=== PATIENT | male | born 1995 | race Caucasian/White ===

== ENCOUNTER 2023-02-04 11:44 | Emergency (ER) | payer MEDICAID ==
[~2023-02-04] VITALS: Ht 175.3 cm; Wt 91.0 kg
[2023-02-04 11:47] VITALS: O2SAT 99
[2023-02-04] MEDS ORDERED: FLUORESCEIN SODIUM 1MG/STRIP LEFTEYE ONE (12:15)
[2023-02-04] MEDS ORDERED: TETRACAINE 0.5% OPHTH DROPS 4ML LEFTEYE ONE (12:15)
[2023-02-04 12:42] LABS: BASOPHILS % 0.3 % (0.0-2.0); EOSINOPHILS % 0.4 % (0.0-5.0); HEMATOCRIT. 54.2 % (42.0-52.0); HEMOGLOBIN. 18.7 g/dL (14.0-18.0); LYMPHOCYTES % 13.1 % (20.0-50.0); MEAN CORPUSCULAR HEMOGLOBIN 29.2 pg (28.0-32.0); MEAN CORPUSCULAR VOLUME 84.7 fL (80.0-94.0); MEAN PLATELET VOLUME 9.1 fl (7.4-10.4); NEUTROPHILS % 75.2 % (40.0-76.0); PLATELET 222 x1000/uL (130-400); RED CELL DISTRIBUTION WIDTH 13.5 % (11.6-14.6)
[2023-02-04 12:50] LABS: CHLORIDE 106 mEq/L (98-107)
[2023-02-04] MEDS ORDERED: IOHEXOL-300 100 ML BOTTLE ONE (13:51)
[2023-02-04] MEDS ORDERED: AMOX1TAB16 MT (14:53)
[2023-02-04] MEDS ORDERED: SULF1TAB48 MT (14:53)
[2023-02-04] MEDS ORDERED: IBUP-2029 MT (14:54)
[2023-02-04] MEDS ORDERED: KETOROLAC 30MG/ML VIAL IV ONE (15:00)
[2023-02-04 15:52] VITALS: BP 134/99; PULSE 66; RESP 18; TEMP 98.3
== END 2023-02-04 15:53 | disposition home or self-care (01) ==
LOC: ER 11:44
DX: L03.213 Periorbital cellulitis (principal); H57.12 Ocular pain, left eye
CPT/HCPCS: 99285; 96374; 70481; 80048; 85025; 36415; Q9967; J1885

== ENCOUNTER 2023-02-16 19:28 | Emergency (ER) | payer MEDICAID ==
[~2023-02-16] VITALS: Ht 175.3 cm; Wt 91.0 kg
[~2023-02-16 19:28] MED LIST: AMOX1TAB16 MT; IBUP-2029 MT; SULF1TAB48 MT
[2023-02-16 20:55] VITALS: TEMP 98.2; O2SAT 99
[2023-02-16] MEDS ORDERED: CIPR5DRO EACHEYE (21:46)
[2023-02-16 22:04] VITALS: BP 138/96; PULSE 82; RESP 15
[2023-02-17] MEDS ORDERED: HYDR453.3 TP (04:19)
[2023-02-17] MEDS ORDERED: NAPR-681 PO (04:19)
[2023-02-17] MEDS ORDERED: DIPH25CA83 PO (04:19)
== END 2023-02-16 22:06 | disposition home or self-care (01) ==
LOC: ER 19:28
DX: H10.33 Unspecified acute conjunctivitis, bilateral (principal)
CPT/HCPCS: 99283

== ENCOUNTER 2023-02-17 00:33 | Emergency (ER) | payer MEDICAID ==
[~2023-02-17] VITALS: Ht 175.3 cm; Wt 82.0 kg
[~2023-02-17 00:33] MED LIST changes: +CIPR5DRO EACHEYE
[2023-02-17 00:36] VITALS: BP 125/78; PULSE 98; RESP 18; TEMP 98.1; O2SAT 98
[2023-02-17] MEDS ORDERED: KETOROLAC 30MG/ML VIAL IM STA (03:56)
[2023-02-17] MEDS ORDERED: DIPHENHYDRAMINE 50MG/ML VIAL IM ONE (04:15)
[2023-02-17] MEDS ORDERED: DIPH25CA83 PO (04:19)
[2023-02-17] MEDS ORDERED: NAPR-681 PO (04:19)
[2023-02-17] MEDS ORDERED: HYDR453.3 TP (04:19)
== END 2023-02-17 04:32 | disposition home or self-care (01) ==
LOC: ER 00:33
DX: H10.9 Unspecified conjunctivitis (principal)
CPT/HCPCS: 96372; 99284; J1200; J1885; Z7610